=== PATIENT | female | born 2000 | race Caucasian/White ===

== ENCOUNTER 2024-11-10 12:39 | Emergency (ER) | payer BC ==
[~2024-11-10] VITALS: Ht 167.6 cm; Wt 80.0 kg
[2024-11-10 12:44] VITALS: TEMP 36.7; O2SAT 99
[2024-11-10] MEDS: ONDANSETRON HCL 4MG/2ML INJ ONE (13:34)
[2024-11-10] MEDS ORDERED: ONDANSETRON HCL 4MG/2ML INJ IV STA (13:46)
[2024-11-10] MEDS: SODIUM CHLORIDE 0.9% 1,000 ML IV ONE (14:20)
[2024-11-10 14:45] LABS: BASOPHILS % 0.6 % (0.0-2.0); EOSINOPHILS % 0.3 % (0.0-5.0); HEMATOCRIT. 44.2 % (36.0-48.0); HEMOGLOBIN. 14.5 g/dL (12.0-16.0); LYMPHOCYTES % 8.9 % (20.0-50.0); MEAN CORPUSCULAR HEMOGLOBIN 27.3 pg (28.0-32.0); MEAN CORPUSCULAR HGB CONC 32.8 g/dL (31.0-37.0); MEAN CORPUSCULAR VOLUME 83.4 fL (81.0-99.0); MEAN PLATELET VOLUME 7.9 fl (7.4-10.4); MONOCYTES % 5.2 % (2.0-8.0); PLATELET 219 x1000/uL (130-400); RED CELL DISTRIBUTION WIDTH 13.8 % (11.6-14.6); WHITE BLOOD COUNT 8.3 x1000/uL (4.5-11.0)
[2024-11-10 14:51] LABS: CHLORIDE 107 mEq/L (98-107); POTASSIUM 4.7 mEq/L (3.5-5.1); SODIUM 140 mEq/L (136-145)
[2024-11-10 14:52] LABS: CALCIUM 9.1 mg/dL (8.7-10.4); CARBON DIOXIDE 23 mEq/L (21-32)
[2024-11-10 14:57] LABS: GLUCOSE 187 mg/dL (70-105); UREA NITROGEN BLOOD 11 mg/dL (9-23)
[2024-11-10 14:59] LABS: PROTHROMBIN TIME 10.3 sec (9.6-11.0)
[2024-11-10 15:01] LABS: ETHANOL BLOOD < 10 mg/dL (<10); HCG SCREEN NEGATIVE
[2024-11-10 16:07] VITALS: BP 122/74; PULSE 102; RESP 20; O2SAT 99
== END 2024-11-10 16:23 | disposition home or self-care (01) ==
LOC: ER 12:39
DX: R41.82 Altered mental status, unspecified (principal); R11.2 Nausea with vomiting, unspecified; E10.9 Type 1 diabetes mellitus without complications; Z79.4 Long term (current) use of insulin
CPT/HCPCS: 80048; 80320; 82962; 84703; 83690; 85025; 85610; 36415; 96360; 99285; J2405; J7030; Z7610; G0480